=== PATIENT | female | born 1980 | race Caucasian/White ===

== ENCOUNTER 2016-08-08 19:55 | Emergency (ER) | payer BC ==
[~2016-08-08] VITALS: Ht 165.1 cm; Wt 102.6 kg
[~2016-08-08 19:55] MED LIST: ADVAIR 250/501 DISK IH; CLARITIN10 MG PO; FLOMAX0.4 MG PO; NAPROSYN500 MG PO; PERCOCET 5/31 TABLET PO; PROVENTIL HFA6.7 GM IH; SINGULAIR10 MG PO; TRAMADOL HCL50 MG PO; VYVANSE30 MG PO; ZOFRAN ODT4 MG PO
[2016-08-08 20:30] LABS: HEMATOCRIT 45.5 % (36.0-46.0); MCH 28.3 PG (29.0-34.0); MCHC 32.7 G/DL (30.0-36.0); MCV 86.5 FL (83-99); MEAN PLAT.VOLUME 9.5 uM^3 (9.5-12.4); PLATELET COUNT 323 K/uL (156-360); RBC DIS.WIDTH-CV 12.5 % (11.8-14.6); RBC DIS.WIDTH-SD 39.6 % (39-53); RED BLOOD COUNT 5.26 M/uL (3.80-5.20); WHITE BLOOD COUNT 10.1 K/uL (4.1-10.2)
[2016-08-08 20:41] LABS: CHLORIDE 107 mEq/L (99-109); POTASSIUM 3.7 mEq/L (3.7-5.4); SODIUM 140 mEq/L (136-147)
[2016-08-08 20:43] LABS: GLUCOSE 102 mg/dL (70-99)
[2016-08-08 20:44] LABS: ANION GAP 9 MEQ/L (2-14)
[2016-08-08 20:47] LABS: GFR ESTIMATE (CALCULATED) > 59 mL/min/
[2016-08-08 20:48] LABS: UREA NITROGEN (BUN) 13 mg/dL (9-23)
[2016-08-08 21:45] LABS: ADD MIUA? YES; BILIRUBIN NEGATIVE; BLOOD LARGE; COLOR YELLOW ((YELLOW)); GLUCOSE (STRIP) NEGATIVE; KETONES NEGATIVE; LEUKOCYTES TRACE; NITRITE NEGATIVE; PROTEIN (STRIP) 30; SPECIFIC GRAVITY 1.029 (1.000-1.030); UROBILINOGEN 0.2 MG/DL (0.2-1.0)
[2016-08-08 22:25] LABS: CASTS NONE SEEN /LPF; EPITHELIAL CELLS 4+ /HPF; MUCUS 1+ /LPF; RED BLOOD CELLS TNTC /HPF (0-5); WHITE BLOOD CELLS 15-20 /HPF (0-5)
[2016-08-08 22:26] LABS: BACTERIA 3+ /HPF; UCUL ADDED? YES
[2016-08-08] MEDS ORDERED: CIPRO500 MG PO (22:53)
[2016-08-08] MEDS ORDERED: PERCOCET 5/31 TABLET PO (22:53)
[2016-08-08] MEDS ORDERED: ZOFRAN4 MG PO (22:53)
[2016-08-08] MEDS ORDERED: FLOMAX0.4 MG PO (22:53)
[2016-08-08 23:09] VITALS: BP 124/71
== END 2016-08-08 23:10 | disposition home or self-care (01) ==
LOC: EME 19:55
DX: N13.2 Hydronephrosis with renal and ureteral calculous obstruction (principal); N39.0 Urinary tract infection, site not specified; Z87.442 Personal history of urinary calculi; K57.30 Diverticulosis of large intestine without perforation or abscess without bleeding
CPT/HCPCS: 74176; 80048; 81003; 85027; 87086; 99281; 99284; J1885